=== PATIENT | male | born 1990 | race Caucasian/White ===

== ENCOUNTER 2024-02-04 02:25 | Inpatient (IN) | payer OTHER, SELFPAY ==
[2024-02-04 03:00] VITALS: BP 141/96; PULSE 94; RESP 24; TEMP 36.4; O2SAT 94; BMI 70.0
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
[2024-02-04 09:05] LABS: Creatinine Clr Calc Pharmacy 254.5; Estimated Glomerular Filt Rate > 60
[2024-02-04] MEDS: metFORMIN HCl 500 MG TABLET PO ×2 (09:16→16:27)
[2024-02-04] MEDS: QUEtiapine Fumarate 100 MG TABLET PO (09:16)
[2024-02-04 09:18] VITALS: BP 173/84; PULSE 88; RESP 18; TEMP 36.6; O2SAT 95
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
[2024-02-04 19:55] VITALS: BP 156/95; PULSE 94; TEMP 36.8; O2SAT 95
[2024-02-04] MEDS: traZODone HCL 50 MG TABLET PO (20:51)
[2024-02-04] MEDS: QUEtiapine Fumarate 200 MG TABLET PO (20:51)
[2024-02-05] MEDS: Acetaminophen 325 MG TABLET 650 MG PO (07:05)
[2024-02-05 08:15] VITALS: BP 149/71; PULSE 101; RESP 18; TEMP 36.8; O2SAT 98
[2024-02-05] MEDS: QUEtiapine Fumarate 100 MG TABLET PO (08:35)
[2024-02-05] MEDS: metFORMIN HCl 500 MG TABLET PO ×2 (08:35→17:37)
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
--- NOTE | 2024-02-05 15:05 | P.CONHOSP_ITS ---
History of Present Illness Data of Consult Service Date: 02/05/24 Primary Care Provider: Unknown Physician HPI Reason for consult: Admission H&P Pt is a 33-year-old male with a PMH significant for?non-insulin dependent type 2 diabetes, schizoaffective disorder, bipolar disorder, and depression who is admitted to M5 psychiatry unit for acute psychotic episode. Patient initially presented to [facility] in [place] and initially not answering responding coherently to queries. Medical consult for admission H&P. ?At time of interview and exam patient mostly answering appropriately, though will occasionally deferred to talking about ?the solar eclipse? when asked about his lower leg edema. The patient's primary complaint is of chronic swelling in his lower legs and feet that he states has been ongoing for the past 10+ years. Reports follows with his PCP who was going to start him on Lasix but that has not yet happened for unclear reasons. Denies any other acute medical complaint. No chest pain or pressure. Chronic SOB at baseline. Denies fever, chills, N/V/D or abd pain. Review of Systems 2 Review of Systems: Chronic lower leg and foot edema bilaterally Chronic SOB at baseline Pt otherwise has no acute medical complaints [facility] Medical History (Updated 02/06/24 @ 02:17 by AUDRA Brian) Non-insulin dependent type 2 diabetes mellitus Bipolar disorder Schizoaffective disorder Polysubstance use disorder Social History Household Members: None Housing: Homeless Do you presently have visiting nurse or other home services: No Patient Tobacco Use Status: Current someday Tobacco user Tobacco use type: Cigarette Patient Interested in Nicotine Replacement: No Use of substances other than those prescribed or required for medical reasons: Yes Substance Use Type: Marijuana Substance Use Frequency: Occasionally Currently Displaying Signs/Symptoms of Drug Intoxication Withdrawal: No Any prior treatment program specific to substance use: Yes Advance Directives: No Advance Directives Information Provided: No Do you have thoughts of harming others: None Do you have a plan to hurt others: No Plan Recently lost weight without trying: No service: No Sexual orientation: Straight/Heterosexual Meds Allergies Allergy/AdvReac Type Severity Reaction Status Date / Time Fish Containing Products Allergy Unknown Unverified 02/04/24 03:36 Active Medications: Current Medications Acetaminophen (Acetaminophen 325 Mg Tablet) 650 mg PO Q6H PRN PRN Reason: Headache/Pain Mild Scale (1-3) Last Admin: 02/05/24 07:05 Dose: 650 mg Al Hydroxide/Mg Hydroxide (Magnesium Hydrox/Alum Hydrox 30 Ml Oral.Susp) 30 ml PO Q6H PRN PRN Reason: Heartburn/Nausea Albuterol Sulfate (Albuterol Sulfate 90 Mcg 8 Gm Inhaler) 2 puff INHALE RQ4H PRN PRN Reason: Wheezing Divalproex Sodium (Divalproex Sodium Er 500 Mg Tab.Er.24h) 500 mg PO BEDTIME [facility] Last Admin: 02/04/24 20:53 Dose: Not Given Hydroxyzine HCl (Hydroxyzine Hcl 25 Mg Tablet) 25 mg PO Q6H PRN PRN Reason: Anxiety Magnesium Hydroxide (Milk Of Magnesia 30 Ml Oral.Susp) 30 ml PO DAILY PRN PRN Reason: Constipation Metformin HCl (Metformin Hcl 500 Mg Tablet) 500 mg PO BIDWM [facility] Last Admin: 02/05/24 08:35 Dose: 500 mg Nicotine Polacrilex (Nicotine Polacrilex 2 Mg Gum) 4 mg BUCCAL Q2H PRN PRN Reason: Nicotine Cravings Quetiapine Fumarate (Quetiapine Fumarate 200 Mg Tablet) 200 mg PO BEDTIME [facility] Last Admin: 02/04/24 20:51 Dose: 200 mg Quetiapine Fumarate (Quetiapine Fumarate 100 Mg Tablet) 100 mg PO DAILY [facility] Last Admin: 02/05/24 08:35 Dose: 100 mg Trazodone HCl (Trazodone Hcl 50 Mg Tablet) 50 mg PO BEDTIME MRX1 PRN PRN Reason: Insomnia Last Admin: 02/04/24 20:51 Dose: 50 mg Home Medications ?Medication ?Instructions ?Recorded ?Confirmed ?Last Taken ?Type metformin 500 mg tablet 500 mg PO BID 02/04/24 02/04/24 Unknown History quetiapine 100 mg tablet 100 mg PO DAILY 02/04/24 02/04/24 02/03/24 History quetiapine 200 mg tablet 200 mg PO BEDTIME 02/04/24 02/04/24 02/03/24 21:00 History Physical Exam 2 Vital Signs and Narrative: Vital Signs: Last Vital Signs Temp 98.3 F 02/05/24 08:15 Pulse 101 H 02/05/24 08:15 Resp 18 02/05/24 08:15 BP 149/71 H 02/05/24 08:15 Pulse Ox 98 02/05/24 08:15 O2 Del Method Room Air 02/05/24 08:15 BMI result Body Mass Index 70.0 General: AOx3, no acute distress Resp: CTA bilaterally CVS: S1, S2, RRR GI: +BS, NT, no distention Skin: Warm, dry Neuro: Cranial nerves II-XII grossly intact bilaterally. Motor grossly intact bilaterally Extremities: Significant lymphedema and pitting edema of lower extremities bilaterally. As pictured below Psych: Appropriate affect Results Labs 02/04/24 08:36 Assessment and Plan (1) Medical clearance for psychiatric admission: Status: Acute Plan Pt is a 33-year-old male with a PMH significant for?non-insulin type two diabetes, schizoaffective disorder, bipolar disorder, and depression who is admitted to M5 psychiatry unit for acute psychotic episode. Patient initially presented to [facility] in [place] and initially not answering responding coherently to queries. Medical consult for admission H&P. Mood disorder Plan as per psychiatry Lower extremity edema Chronic, ongoing for 10+ years Reports supposed to be on diuretics Will trial furosemide 20mg daily, though expect limited results Check BMP in 3 days for electrolyte abnormalities F/U outpatient with PCP and/or vascular specialist Non-insulin dependent type 2 diabetes Continue metformin Encourage diabetic diet and snacking Obesity Class III Pt's BMI >70 Encourage weight loss Thank you for allowing us to participate in the care of this patient. Signing off at this time. Please re-consult if any acute complaints or issues arise.
[2024-02-05] MEDS: Furosemide 20 MG TABLET PO (17:36)
[2024-02-05 20:00] VITALS: BP 172/90; PULSE 17; RESP 17; TEMP 36.4; O2SAT 96
[2024-02-05] MEDS: traZODone HCL 50 MG TABLET PO (21:12)
[2024-02-05] MEDS: QUEtiapine Fumarate 200 MG TABLET PO (21:12)
[2024-02-06] MEDS: Acetaminophen 325 MG TABLET 650 MG PO (06:47)
[2024-02-06] MEDS: QUEtiapine Fumarate 100 MG TABLET PO ×2 (07:21→11:10)
[2024-02-06 08:00] VITALS: BP 127/76; PULSE 107; RESP 18; TEMP 36.9; O2SAT 97
[2024-02-06] MEDS: metFORMIN HCl 500 MG TABLET PO ×2 (09:07→17:46)
[2024-02-06] MEDS: Furosemide 20 MG TABLET PO (09:07)
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
[2024-02-06] MEDS: Ibuprofen 800 MG TABLET PO (17:48)
[2024-02-06] MEDS: Haloperidol Lactate 5 MG/ML VIAL 10 MG IM (18:08)
[2024-02-06] MEDS: LORazepam 2 MG/ML VIAL IM (18:08)
[2024-02-06 18:30] VITALS: BP 153/80; PULSE 104; RESP 18; TEMP 36.9; O2SAT 95
[2024-02-06 18:45] VITALS: BP 123/76; PULSE 112; RESP 18; TEMP 36.4; O2SAT 92
[2024-02-06 19:00] VITALS: BP 139/79; PULSE 104; RESP 20; TEMP 36.6; O2SAT 96
[2024-02-06 19:15] VITALS: BP 126/60; PULSE 101; RESP 18; TEMP 36.4; O2SAT 97
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
[2024-02-06] MEDS: QUEtiapine Fumarate 400 MG TABLET PO (23:01)
[2024-02-06] MEDS: traZODone HCL 50 MG TABLET PO (23:01)
[2024-02-06] MEDS: Haloperidol Lactate Oral Conc 10 MG/5 ML ORAL.CONC PO (23:02)
[2024-02-07] MEDS: Acetaminophen 325 MG TABLET 650 MG PO (00:34)
[2024-02-07] MEDS: traZODone HCL 50 MG TABLET PO (00:36)
[2024-02-07] MEDS: Ibuprofen 800 MG TABLET PO ×2 (03:08→20:30)
[2024-02-07 08:00] VITALS: RESP 18
[2024-02-07] MEDS: Furosemide 20 MG TABLET PO (08:38)
[2024-02-07] MEDS: QUEtiapine Fumarate 100 MG TABLET PO (08:38)
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
[2024-02-07] MEDS: diphenhydrAMINE HCL 50 MG/ML VIAL IM (16:15)
[2024-02-07] MEDS: Haloperidol Lactate 5 MG/ML VIAL 10 MG IM (16:15)
[2024-02-07] MEDS: LORazepam 2 MG/ML VIAL IM (16:16)
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
[2024-02-07] MEDS: QUEtiapine Fumarate 400 MG TABLET PO (20:29)
[2024-02-08] MEDS: Acetaminophen 325 MG TABLET 650 MG PO ×2 (00:34→22:38)
[2024-02-08] MEDS: traZODone HCL 50 MG TABLET PO (00:35)
[2024-02-08] MEDS: OLANZapine 10 MG TABLET PO (00:36)
[2024-02-08] MEDS: hydrOXYzine HCL 25 MG TABLET PO (00:36)
[2024-02-08 08:00] VITALS: RESP 18
[2024-02-08] MEDS: Furosemide 20 MG TABLET PO (08:56)
[2024-02-08] MEDS: QUEtiapine Fumarate 100 MG TABLET PO (08:57)
--- NOTE | 2024-02-08 16:16 | P.PNPSI_ITS ---
Subjective Subjective Date of Service: 02/08/24 Reason For Visit: Unspecified psychosis Subjective Notes: Conditional Voluntary and 3 Day Healthcare Proxy: No Guardianship: No Interim History: Pt seen in [facility]. Reviewed with his team. A better day today without behavioral dyscontrol, but with some testing. It appears when pt is feeling vulnerable he begins to threaten others. Approached pt to discuss his thoughts on discharge. You change my discharge and I will hurt you. Confronted and discussed this stance with pt. Education attempted regarding potential outcomes, how others may respond to him and this threat and resulting vulnerability for him. Discussed this behavior influencing decision making about future treatment, housing opportunity and the impact on his life if he continues to take this stance with people. He will consider. Medication Compliance: Intermittent Side effects from medications: No Attending Groups: Intermittent Review of Systems ble edema, pedal edema Medical Review of Systems: unchanged Review of Systems Review of Systems BLE edema Pedal edema Refusing of further diagnostics Mental Status Exam Mental Status Exam Patient Appearance: Appropriate Patient Orientation: Person, Place and Situation Level of Consciousness: Alert Patient Behavior: Talkative and Good Eye Contact Mood Description: Labile and Apprehensive Affect Description: Labile and Apprehensive Patient Cognition Impaired: No Ability to Follow Directions: Fair Speech Pattern: Spontaneous Speech Memory Description: Episodic Impaired Hallucinations: Auditory (at times present per pt and team, at times not) Delusions: Present Perceptual Disturbances: Depersonalization and Derealization Thought Process: Distracted and Rumination Thought Content: positive for [place], positive for Circumstantial, positive for Suicidal Ideation (denies) and positive for Homicidal Ideation (denies) Depressive Symptoms: Increased Irritability Judgement: Good Diagnostics Vital Signs (24Hr): Vital Signs - 24 hr 02/08/24 08:00 Respiratory Rate 18 BMI result Body Mass Index 70.0 Labs 02/09/24 08:24 Medications Medications Current Medications Acetaminophen (Acetaminophen 325 Mg Tablet) 650 mg PO Q6H PRN PRN Reason: Headache/Pain Mild Scale (1-3) Last Admin: 02/08/24 00:34 Dose: 650 mg Al Hydroxide/Mg Hydroxide (Magnesium Hydrox/Alum Hydrox 30 Ml Oral.Susp) 30 ml PO Q6H PRN PRN Reason: Heartburn/Nausea Albuterol Sulfate (Albuterol Sulfate 90 Mcg 8 Gm Inhaler) 2 puff INHALE RQ4H PRN PRN Reason: Wheezing Furosemide (Furosemide 20 Mg Tablet) 20 mg PO DAILY [facility]; Protocol Last Admin: 02/08/24 08:56 Dose: 20 mg Haloperidol Lactate (Haloperidol Lactate Oral Conc 10 Mg/5 Ml Oral.Conc) 10 mg PO BID [facility] Last Admin: 02/08/24 09:22 Dose: Not Given Hydroxyzine HCl (Hydroxyzine Hcl 25 Mg Tablet) 25 mg PO Q6H PRN PRN Reason: Anxiety Last Admin: 02/08/24 00:36 Dose: 25 mg Ibuprofen (Ibuprofen 800 Mg Tablet) 800 mg PO Q8H PRN PRN Reason: back pain Last Admin: 02/07/24 20:30 Dose: 800 mg Magnesium Hydroxide (Milk Of Magnesia 30 Ml Oral.Susp) 30 ml PO DAILY PRN PRN Reason: Constipation Metformin HCl (Metformin Hcl 500 Mg Tablet) 500 mg PO BIDWM [facility] Last Admin: 02/08/24 09:22 Dose: Not Given Nicotine Polacrilex (Nicotine Polacrilex 2 Mg Gum) 4 mg BUCCAL Q2H PRN PRN Reason: Nicotine Cravings Olanzapine (Olanzapine 10 Mg Tablet) 10 mg PO BID PRN PRN Reason: psychosis, agitation, violence Last Admin: 02/08/24 00:36 Dose: 10 mg Quetiapine Fumarate (Quetiapine Fumarate 100 Mg Tablet) 100 mg PO DAILY [facility] Last Admin: 02/08/24 08:57 Dose: 100 mg Quetiapine Fumarate (Quetiapine Fumarate 400 Mg Tablet) 400 mg PO BEDTIME [facility] Last Admin: 02/07/24 20:29 Dose: 400 mg Trazodone HCl (Trazodone Hcl 50 Mg Tablet) 50 mg PO BEDTIME MRX1 PRN PRN Reason: Insomnia Last Admin: 02/08/24 00:35 Dose: 50 mg Allergies Allergies Allergy/AdvReac Type Severity Reaction Status Date / Time Fish Containing Products Allergy Unknown Unverified 02/04/24 03:36 Assessment & Plan Assessment & Plan (1) Schizoaffective disorder, bipolar type: Status: Acute Code(s): F25.0 - Schizoaffective disorder, bipolar type Plan 02/06/24 Haldol 10 mg bid Olanzapine 10 mg bid prn psychosis, agitation, violence Increase Seroquel to 400 mg HS 02/07/24 Refusing newly scheduled medications. Agitated, demanding of discharge to [place]. Required IM Haldol, Lorazepam/Diphenhydramine 1610 Symptoms appear mostly behavioral in origin today. 02/07 A better day Continue tx Looking to discharge on 02/09 if pt remains in behavioral control. Reason for continued inpatient stay Substantial Risk for: rapid decompensation Time Spent With Patient Time: Total time managing care of this patient today ____ minutes.
[2024-02-08] MEDS: Ibuprofen 800 MG TABLET PO (20:24)
[2024-02-08] MEDS: QUEtiapine Fumarate 400 MG TABLET PO (21:19)
[2024-02-08 22:00] VITALS: BP 134/67; PULSE 104; TEMP 36.6
[2024-02-09] MEDS: traZODone HCL 50 MG TABLET PO ×2 (00:28→20:28)
[2024-02-09] MEDS: Cyclobenzaprine HCl 10 MG TABLET PO (00:29)
[2024-02-09 07:55] VITALS: RESP 18
[2024-02-09] MEDS: Ibuprofen 800 MG TABLET PO (08:04)
--- NOTE | 2024-02-09 08:36 | P.PNPSI_ITS ---
Subjective Subjective Date of Service: 02/09/24 Reason For Visit: Unspecified psychosis Subjective Notes: Conditional Voluntary Healthcare Proxy: No Guardianship: No Medical Problems Affecting Mental Status: No Interim History: Pt seen in milieu. Reviewed with team. Able to take PO meds before loss of control today which he was commended for. Team placing extra effort on alliance building with pt. Pt not accepting scheduled meds as ordered. Using prns. Working to discharge 02/09 Denies SI/HI/AH/VH. Intermittent agitation responsive to support, prn medication Self dialogues at times during the day. Sx of psychosis present at times, however pt is able to reality test/orient and work with the team. Medication Compliance: Intermittent Side effects from medications: No Attending Groups: Intermittent Review of Systems Acute medical concerns: No BLE and pedal edema Medical Review of Systems: unchanged Review of Systems Review of Systems Yes all other systems are reviewed and are negative Mental Status Exam Mental Status Exam Patient Appearance: Appropriate Patient Orientation: Person, Place and Situation Level of Consciousness: Alert Patient Behavior: Talkative and Good Eye Contact Mood Description: Labile and Apprehensive Affect Description: Labile and Apprehensive Patient Cognition Impaired: No Ability to Follow Directions: Fair Speech Pattern: Spontaneous Speech Memory Description: Episodic Impaired Hallucinations: Auditory (at times present per pt and team, at times not) Delusions: Present Perceptual Disturbances: Depersonalization and Derealization Thought Process: Distracted and Rumination Thought Content: positive for [place], positive for Circum[place], positive for Suicidal Ideation (denies) and positive for Homicidal Ideation (denies) Depressive Symptoms: Increased Irritability Judgement: Good Diagnostics Vital Signs (24Hr): Vital Signs - 24 hr 02/08/24 22:00 02/09/24 07:55 Temperature 97.8 F Pulse Rate 104 H Respiratory Rate 18 Blood Pressure 134/67 BMI result Body Mass Index 70.0 Labs 02/09/24 08:24 Medications Medications Current Medications Acetaminophen (Acetaminophen 325 Mg Tablet) 650 mg PO Q6H PRN PRN Reason: Headache/Pain Mild Scale (1-3) Last Admin: 02/08/24 22:38 Dose: 650 mg Al Hydroxide/Mg Hydroxide (Magnesium Hydrox/Alum Hydrox 30 Ml Oral.Susp) 30 ml PO Q6H PRN PRN Reason: Heartburn/Nausea Albuterol Sulfate (Albuterol Sulfate 90 Mcg 8 Gm Inhaler) 2 puff INHALE RQ4H PRN PRN Reason: Wheezing Furosemide (Furosemide 20 Mg Tablet) 20 mg PO DAILY [facility]; Protocol Last Admin: 02/09/24 08:06 Dose: Not Given Haloperidol Lactate (Haloperidol Lactate Oral Conc 10 Mg/5 Ml Oral.Conc) 10 mg PO BID [facility] Last Admin: 02/09/24 08:06 Dose: Not Given Hydroxyzine HCl (Hydroxyzine Hcl 25 Mg Tablet) 25 mg PO Q6H PRN PRN Reason: Anxiety Last Admin: 02/08/24 00:36 Dose: 25 mg Ibuprofen (Ibuprofen 800 Mg Tablet) 800 mg PO Q8H PRN PRN Reason: back pain Last Admin: 02/09/24 08:04 Dose: 800 mg Magnesium Hydroxide (Milk Of Magnesia 30 Ml Oral.Susp) 30 ml PO DAILY PRN PRN Reason: Constipation Metformin HCl (Metformin Hcl 500 Mg Tablet) 500 mg PO BIDWM [facility] Last Admin: 02/09/24 08:06 Dose: Not Given Nicotine Polacrilex (Nicotine Polacrilex 2 Mg Gum) 4 mg BUCCAL Q2H PRN PRN Reason: Nicotine Cravings Olanzapine (Olanzapine 10 Mg Tablet) 10 mg PO BID PRN PRN Reason: psychosis, agitation, violence Last Admin: 02/08/24 00:36 Dose: 10 mg Quetiapine Fumarate (Quetiapine Fumarate 100 Mg Tablet) 100 mg PO DAILY [facility] Last Admin: 02/09/24 08:06 Dose: Not Given Quetiapine Fumarate (Quetiapine Fumarate 400 Mg Tablet) 400 mg PO BEDTIME [facility] Last Admin: 02/08/24 21:19 Dose: 400 mg Trazodone HCl (Trazodone Hcl 50 Mg Tablet) 50 mg PO BEDTIME MRX1 PRN PRN Reason: Insomnia Last Admin: 02/09/24 00:28 Dose: 50 mg Allergies Allergies Allergy/AdvReac Type Severity Reaction Status Date / Time Fish Containing Products Allergy Unknown Unverified 02/04/24 03:36 Assessment & Plan Assessment & Plan (1) Schizoaffective disorder, bipolar type: Status: Acute Code(s): F25.0 - Schizoaffective disorder, bipolar type Plan 02/06/24 Haldol 10 mg bid Olanzapine 10 mg bid prn psychosis, agitation, violence Increase Seroquel to 400 mg HS 02/07/24 Refusing newly scheduled medications. Agitated, demanding of discharge to [place]. Required IM Haldol, Lorazepam/Diphenhydramine 1610 Symptoms appear mostly behavioral in origin today. 02/08 Continue tx Discharge 02/10/24. Reasonable progress over the weekend and increased alliance with team. Reason for continued inpatient stay Substantial Risk for: rapid decompensation Time Spent With Patient Time: Total time managing care of this patient today ____ minutes.
[2024-02-09 08:45] LABS: Anion Gap 11 (12-20); Blood Urea Nitrogen 13 mg/dL (9-16); Calcium 9.4 mg/dL (8.4-10.2); Carbon Dioxide 29 mmol/L (22-29); Chloride 103 mmol/L (96-108); Creatinine Clr Calc Pharmacy 261.5; Estimated Glomerular Filt Rate > 60; Glucose Random 105 mg/dL (60-115); Potassium 4.3 mmol/L (3.3-5.1); Sodium 139 mmol/L (135-145)
[2024-02-09] MEDS: LORazepam 1 MG TABLET 2 MG PO (17:00)
[2024-02-09] MEDS: diphenhydrAMINE HCL 25 MG CAPSULE 50 MG PO (17:00)
[2024-02-09] MEDS: HaloperidoL 5 MG TABLET 10 MG PO (17:00)
[2024-02-09 19:44] VITALS: BP 138/86; PULSE 108; RESP 18; TEMP 36.6; O2SAT 94
[2024-02-09] MEDS: QUEtiapine Fumarate 400 MG TABLET PO (20:28)
[2024-02-09] MEDS: OLANZapine 10 MG TABLET PO (20:28)
[2024-02-09] MEDS: metFORMIN HCl 500 MG TABLET PO (20:29)
[2024-02-09] MEDS: hydrOXYzine HCL 25 MG TABLET PO (20:29)
[2024-02-10] MEDS: Ibuprofen 800 MG TABLET PO (02:13)
[2024-02-10 08:59] VITALS: BP 141/89; PULSE 106; RESP 18; TEMP 36.4
[2024-02-10] MEDS: Furosemide 20 MG TABLET PO (09:08)
[2024-02-10] MEDS: metFORMIN HCl 500 MG TABLET PO (09:08)
[2024-02-10] MEDS: QUEtiapine Fumarate 100 MG TABLET PO (09:08)
--- NOTE | 2024-02-10 09:49 | HO.PSYCHPN ---
Subjective Subjective Reason For Visit: Unspecified psychosis Diagnostics Vital Signs (24Hr): Vital Signs - 24 hr 02/09/24 19:44 02/10/24 08:59 Temperature 98 F 97.5 F Pulse Rate 108 H 106 H Respiratory Rate 18 18 Blood Pressure 138/86 141/89 H Pulse Oximetry 94 Oxygen Delivery Method Room Air Room Air BMI result Body Mass Index 70.0 Labs 02/09/24 08:24 Labs: Laboratory Results - last 48 hr 02/09/24 08:24 Sodium 139 Potassium 4.3 Chloride 103 Carbon Dioxide 29 Anion Gap 11 L BUN 13 Creatinine 0.73 Estim Creat Clear Calc 261.5 Estimated GFR > 60 Random Glucose 105 Calcium 9.4 Medications Medications Current Medications Acetaminophen (Acetaminophen 325 Mg Tablet) 650 mg PO Q6H PRN PRN Reason: Headache/Pain Mild Scale (1-3) Last Admin: 02/08/24 22:38 Dose: 650 mg Al Hydroxide/Mg Hydroxide (Magnesium Hydrox/Alum Hydrox 30 Ml Oral.Susp) 30 ml PO Q6H PRN PRN Reason: Heartburn/Nausea Albuterol Sulfate (Albuterol Sulfate 90 Mcg 8 Gm Inhaler) 2 puff INHALE RQ4H PRN PRN Reason: Wheezing Furosemide (Furosemide 20 Mg Tablet) 20 mg PO DAILY [facility]; Protocol Last Admin: 02/10/24 09:08 Dose: 20 mg Haloperidol Lactate (Haloperidol Lactate Oral Conc 10 Mg/5 Ml Oral.Conc) 10 mg PO BID [facility] Last Admin: 02/10/24 09:10 Dose: Not Given Hydroxyzine HCl (Hydroxyzine Hcl 25 Mg Tablet) 25 mg PO Q6H PRN PRN Reason: Anxiety Last Admin: 02/09/24 20:29 Dose: 25 mg Ibuprofen (Ibuprofen 800 Mg Tablet) 800 mg PO Q8H PRN PRN Reason: back pain Last Admin: 02/10/24 02:13 Dose: 800 mg Magnesium Hydroxide (Milk Of Magnesia 30 Ml Oral.Susp) 30 ml PO DAILY PRN PRN Reason: Constipation Metformin HCl (Metformin Hcl 500 Mg Tablet) 500 mg PO BIDWM [facility] Last Admin: 02/10/24 09:08 Dose: 500 mg Nicotine Polacrilex (Nicotine Polacrilex 2 Mg Gum) 4 mg BUCCAL Q2H PRN PRN Reason: Nicotine Cravings Olanzapine (Olanzapine 10 Mg Tablet) 10 mg PO BID PRN PRN Reason: psychosis, agitation, violence Last Admin: 02/09/24 20:28 Dose: 10 mg Quetiapine Fumarate (Quetiapine Fumarate 100 Mg Tablet) 100 mg PO DAILY [facility] Last Admin: 02/10/24 09:08 Dose: 100 mg Quetiapine Fumarate (Quetiapine Fumarate 400 Mg Tablet) 400 mg PO BEDTIME [facility] Last Admin: 02/09/24 20:28 Dose: 400 mg Trazodone HCl (Trazodone Hcl 50 Mg Tablet) 50 mg PO BEDTIME MRX1 PRN PRN Reason: Insomnia Last Admin: 02/09/24 20:28 Dose: 50 mg Allergies Allergies Allergy/AdvReac Type Severity Reaction Status Date / Time Fish Containing Products Allergy Unknown Unverified 02/04/24 03:36 Assessment & Plan Assessment & Plan (1) Schizoaffective disorder, bipolar type: Status: Acute Code(s): F25.0 - Schizoaffective disorder, bipolar type Plan 02/06/24 Haldol 10 mg bid Olanzapine 10 mg bid prn psychosis, agitation, violence Increase Seroquel to 400 mg HS 02/07/24 Refusing newly scheduled medications. Agitated, demanding of discharge to [place]. Required IM Haldol, Lorazepam/Diphenhydramine 1610 Symptoms appear mostly behavioral in origin today. 02/08 Continue tx Discharge 02/10/24. Reasonable progress over the weekend and increased alliance with team. Time Spent With Patient Time: Total time managing care of this patient today ____ minutes.
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
== END 2024-02-10 11:25 | disposition other institution (70) | DRG 885 ==
PROVIDERS: Student in an Organized Health Care Education/Training Program; Admitting Provider Psychiatry & Neurology Psychiatry; Visit Provider Clinical Nurse Specialist Psychiatric/Mental Health, Adult
DX: F25.0 Schizoaffective disorder, bipolar type (principal); Z68.45 Body mass index [BMI] 70 or greater, adult; F12.90 Cannabis use, unspecified, uncomplicated; E11.9 Type 2 diabetes mellitus without complications; E66.01 Morbid (severe) obesity due to excess calories; F17.210 Nicotine dependence, cigarettes, uncomplicated; Z71.6 Tobacco abuse counseling; Z91.148 Patient's other noncompliance with medication regimen for other reason; Z79.84 Long term (current) use of oral hypoglycemic drugs; Z79.899 Other long term (current) drug therapy
CPT/HCPCS: 36415; 80048; 82565; J1200; J1630; J2060

== ENCOUNTER → 2024-02-04 02:25 | Outpatient (BNV) | payer OTHER, SELFPAY | PROVIDERS: Admitting Provider Psychiatry & Neurology Psychiatry; Visit Provider Student in an Organized Health Care Education/Training Program | DX: Z02.2 Encounter for examination for admission to residential institution (principal) | CPT/HCPCS: 99429 ==

== ENCOUNTER → 2024-02-04 02:25 | Outpatient (BNV) | payer OTHER, SELFPAY | PROVIDERS: Admitting Provider Psychiatry & Neurology Psychiatry; Visit Provider Clinical Nurse Specialist Psychiatric/Mental Health, Adult | DX: F25.0 Schizoaffective disorder, bipolar type (principal) | CPT/HCPCS: 90792; 99231; 99232; 99238 ==